=== PATIENT | male | born 2005 | race Two or more races ===

== ENCOUNTER 2025-05-21 21:58 | Emergency (ER) | payer SELFPAY ==
[2025-05-21 22:01] VITALS: BMI 25.7
[2025-05-21 22:52] VITALS: BP 141/71; PULSE 78; RESP 16; TEMP 37.3; O2SAT 98
[2025-05-21] MEDS: ONDANSETRON ODT 4 MG TABRAP PO (23:18)
[2025-05-21] MEDS: FAMOTIDINE 20 MG TABLET 40 MG PO (23:18)
--- NOTE | 2025-05-22 02:25 | PD.EDNV ---
Nausea/Vomit./Diarrhea-RME/HPI General Chief complaint: Nausea/Vomiting/Diarrhea Stated complaint: VOMITING Time Seen by Provider: 05/21/25 23:08 Arrival date/time: 05/21/25 21:58 19M with no significant PMH presents to ED with 1 days of intermittent N/V. Patient denies any pain including ab and chest pain. Patient also denies diarrhea and URI symptoms, as well as alcohol/drug use. Limitations: no limitations Related Data Previous Rx's ?Medication ?Instructions ?Recorded ondansetron 4 mg disintegrating 4 mg PO Q8H PRN nausea and 05/21/25 tablet vomiting #14 tabs Allergies Allergy/AdvReac Type Severity Reaction Status Date / Time No Known Allergies Allergy Verified 05/21/25 22:00 Review of Systems Review of Systems Systems Reviewed: All systems reviewed, normal except as documented Constitutional Constitutional: Reports system reviewed and no additional complaints, except as documented, Denies fever(s) and Denies headache(s) ENT Ears, Nose, Mouth, and Throat: Denies disequilibrium and Denies headache(s) Cardiovascular Cardiovascular: Reports system reviewed and no additional complaints, except as documented, Denies chest pain and Denies dyspnea Respiratory Respiratory: Reports system reviewed and no additional complaints, except as documented, Denies cough and Denies dyspnea Gastrointestinal Gastrointestinal: Reports system reviewed and no additional complaints, except as documented, Reports as per HPI, Denies abdominal pain, Reports nausea and Reports vomiting Neurologic Neurologic: Reports system reviewed and no additional complaints, except as documented, Denies confusion, Denies disequilibrium and Denies headache(s) Psychiatric Psychiatric: Denies confusion Past Medical History Social History SMOKING STATUS: Never smoker ED Exam General Limitations: Present no limitations General appearance: Present alert and in no apparent distress Head Head exam: Present atraumatic Eye Eye exam: Present normal appearance, PERRL and EOMI ENT ENT exam: Present normal exam, normal oropharynx and mucous membranes moist Neck Neck exam: Present normal inspection, full ROM and trachea midline Chest Chest inspection: Present normal inspection and symmetric chest wall rise Respiratory Respiratory exam: Present normal lung sounds bilaterally Cardiovascular Cardiovascular exam: Present regular rate, normal rhythm and normal heart sounds Abdominal Exam Abdominal exam: Present soft and normal bowel sounds Extremities Exam Extremities exam: Present normal inspection and full ROM Back Exam Back exam: Present normal inspection and full ROM Neurological Exam Neurological exam: Present alert, oriented X3 and CN II-XII intact Psychiatric Psychiatric exam: Present normal affect and normal mood Skin Skin exam: Present warm, dry, intact and normal color Course Quality Measures none Orders Category Date Time Status Famotidine [Pepcid] Med 05/21/25 23:08 Discontinued 40 mg PO X1 ONE Ondansetron Odt [Zofran Odt] Med 05/21/25 23:08 Discontinued 4 mg PO X1 ONE Vital Signs Vital signs: Vital Signs Temperature 99.1 F 05/21/25 22:52 Pulse Rate 78 05/21/25 22:52 Respiratory Rate 16 05/21/25 22:52 Blood Pressure 141/71 H 05/21/25 22:52 Pulse Oximetry (%) 98 05/21/25 22:52 Oxygen Delivery Method Room Air 05/21/25 22:52 O2 at 98% on RA and WNLs Nausea/Vomiting/Diarrhea MDM Narrative MDM Narrative:: 19M with no significant PMH presents to ED with 1 days of intermittent N/V. Patient denies any pain including ab and chest pain. Patient also denies diarrhea and URI symptoms, as well as alcohol/drug use. Physical exam reveals clear oropharynx. Normal WOB. Patient is afebrile, calm, and alert. Meds and chromosomal disorders counselor given. Patient doesn't want to wait for PO challenge. Patient data External records reviewed:: [facility] previous records and None Clinical information provided by:: patient Social determinants that could affect healthcare access:: none Patient has the following chronic illnesses:: none How is presenting disease/condition affected by chronic disease/condition?: no chronic disease Evaluation data The following diagnostics were reviewed and interpreted by me:: other (specify) (none) Lab and/or radiology exams considered but not ordered:: not ordered Interpretation Summary: n/a Medications / Prescriptions Medications / Prescriptions considered but not ordered:: ordered Medication administrations:: Medication Administration History Discontinued Medications Famotidine (Famotidine 20 Mg Tablet) 40 mg PO X1 ONE Stop: 05/21/25 23:09 Last Admin: 05/21/25 23:18 Dose: 40 mg Documented By: JOE Ondansetron HCl (Ondansetron Odt 4 Mg Tabrap) 4 mg PO X1 ONE; Protocol Stop: 05/21/25 23:09 Last Admin: 05/21/25 23:18 Dose: 4 mg Documented By: EF above Consultations Consultation(s) initiated? (list below): No Diagnosis Nausea Differential Diagnosis: traveler's diarrhea, food poisoning, gastroenteritis, clostridium difficile infection, drug-induced nausea and vomiting and dehydration Most likely diagnosis given after review of the tests above:: N/V Admission Indicated Admission indicated?: not indicated Admission Request Was there a request for admission?: No Disposition Plan Disposition Plan: Discharge Discharge Attestation Discharge Attestation: The patient and all family members were given an opportunity to ask questions and understood the discharge instructions. Discharge instructions specifically effects, indications for sooner follow up or return to the emergency department, and the expected course of current diagnosis. Patient condition: Stable Discharge Plan Plan Patient Disposition: HOME (Self Care) Discharge Disposition comment: Stable Prescriptions/Referrals Prescriptions/Med Rec: New ondansetron 4 mg tablet,disintegrating 4 mg PO Q8H PRN (Reason: nausea and vomiting) Qty: 14 0RF Problem List Clinical Impression: Nausea and vomiting Patient/Caregiver Discharge Instructions Education Materials: ED Vomiting (Adult) Additional Instructions: Please follow-up with PCP within 24-48 hours and return immediately if symptoms worsen. Lots of nasal suctioning. Keep hydrated. Advance diet as tolerated. Print Language: Serbian Stand Alone Forms: Patient Portal Info Letter CLEOPATRA/AUTUMN Supervising Physician CLEOPATRA/AUTUMN Supervising Physician: Dr. Sandoval
== END 2025-05-21 23:21 | disposition home or self-care (01) ==
PROVIDERS: Emergency Provider Emergency Medicine
DX: R11.2 Nausea with vomiting, unspecified (principal)
CPT/HCPCS: 99282; Q0162; A9270